=== PATIENT | female | born 1985 | race African-American/Black ===

== ENCOUNTER 2018-07-28 11:32 | Emergency (ER) | payer OTHER, BC ==
[2018-07-28] MEDS: ACETAMINOPHEN 500 MG TAB PO (13:36)
== END 2018-07-28 14:29 | disposition home or self-care (01) ==
LOC: FTE 11:32
DX: S00.93XA Contusion of unspecified part of head, initial encounter (principal); R07.89 Other chest pain; V43.52XA Car driver injured in collision with other type car in traffic accident, initial encounter
CPT/HCPCS: 71045; 93005; 99284-25